=== PATIENT | male | born 1950 | race Caucasian/White ===

== ENCOUNTER 2017-09-18 06:07 | Inpatient (IN) | payer BC, OTHER ==
[2017-09-05 13:06] VITALS: BMI 28.0
--- NOTE | 2017-09-05 13:33 | PAT Medication Instructions ---
Service Date Sep 05, 2017. Current Home Medication List Aspirin (Aspir-81), 1 TAB PO QPM Atorvastatin (Lipitor), 5 MG PO QPM Cholecalciferol (Vitamin D3), 1 TAB PO QAM Indomethacin (Indocin), 50 MG PO TID Metoprolol Tartrate (Lopressor) (Lopressor), 1 TAB PO BID Prednisone Tab (Prednisone), 10 MG PO QAM Tramadol (Ultram), 50 MG PO Q6H PRN for Pain Valsartan (Diovan), 160 MG PO QPM Medication Instructions For Your Scheduled Surgery - Hold the following medications 24 hours prior to surgery: Valsartan (Diovan), 160 MG PO QPM - Hold the following medications the morning of surgery: Cholecalciferol (Vitamin D3), 1 TAB PO QAM - Take the following medications the morning of surgery with a sip of water: Tramadol (Ultram), 50 MG PO Q6H PRN for Pain (okay to take up to 4 hours prior to surgery if needed) Metoprolol Tartrate (Lopressor) (Lopressor), 1 TAB PO BID Prednisone Tab (Prednisone), 10 MG PO QAM - Take the following medications as scheduled the night before surgery: Metoprolol Tartrate (Lopressor) (Lopressor), 1 TAB PO BID Tramadol (Ultram), 50 MG PO Q6H PRN for Pain (if needed) Aspirin (Aspir-81), 1 TAB PO QPM Atorvastatin (Lipitor), 5 MG PO QPM If you have any questions please call us at [phone] or [phone] or [phone]
--- NOTE | 2017-09-05 14:02 | DIAGNOSTIC IMAGING REPORT ---
CHEST 2 VIEWS ROUTINE HISTORY: 67 years-old Male PAT preoperative exam. No acute chest complaints COMPARISON: None available TECHNIQUE: PA and lateral views of the chest FINDINGS: Cardiomediastinal and hilar silhouettes are within normal limits. Atherosclerosis of the aorta. There is no pneumothorax, pleural effusion, focal airspace consolidation or overt pulmonary edema. Degenerative changes are seen within the spine. IMPRESSION: No acute process. The above report was generated using voice recognition software. It may contain grammatical, syntax or spelling errors. Electronically signed by: Pedrito Topete M.D. 09/05/2017 2:01 PM Dictated Date/Time: 09/05/2017 1:59 PM
[2017-09-05 14:03] LABS: BASO % 0.6 %; BASO ABS # 0.04 K/uL (0-0.2); EOS % 3.4 %; EOS ABS # 0.24 K/uL (0-0.5); HEMATOCRIT 37.4 % (42-52); HEMOGLOBIN 13.4 g/dL (14.0-18.0); IG# 0.01 K/uL (0.00-0.02); LYMPH % 15.7 %; MEAN CELL VOLUME 86.4 fL (80-100); MEAN CORPUSCULAR HEMOGLOBIN 30.9 pg (25-34); MEAN CORPUSCULAR HGB CONC 35.8 g/dl (32-36); MEAN PLATELET VOLUME 9.1 fL (7.4-10.4); MONO % 10.6 %; MONO ABS # 0.74 K/uL (0.11-0.59); NEUT % 69.6 %; NEUT ABS # 4.87 K/uL (1.4-6.5); PLATELET COUNT 259 K/uL (130-400); RED CELL DISTRIBUTION WIDTH CV 12.4 % (11.5-14.5); RED CELL DISTRIBUTION WIDTH SD 39.7 fL (36.4-46.3)
[2017-09-05 14:23] LABS: PTT PATIENT 26.4 SECONDS (21.0-31.0)
[2017-09-05 15:14] LABS: CALCIUM 9.7 mg/dl (8.5-10.1); CREATININE 1.46 mg/dl (0.60-1.40); POTASSIUM 4.3 mmol/L (3.5-5.1)
--- NOTE | 2017-09-09 17:21 | HISTORY & PHYSICAL EXAMINATION ---
DATE OF ADMISSION: 09/18/2017 CHIEF COMPLAINT: Left hip pain. HISTORY OF PRESENT ILLNESS: This 67-year-old white male presents to the office with complaints of left hip pain that he has had for several years. It has become significantly worse over the last 4-6 months. He is on chronic steroids for sarcoidosis. Previously, he has increased his dose based on his pain. No numbness or tingling. Pain is worse with weightbearing. He is not having limited motion secondary to pain. He is ambulatory using crutches. He elects to proceed with left total hip arthroplasty in hopes of alleviating his pain. Preoperative imaging has been obtained. PAST MEDICAL HISTORY: Significant for hypertension, elevated cholesterol, history of sarcoidosis, and osteoarthritis. PAST SURGICAL HISTORY: Melanoma excision, bladder reconstruction and colon surgery. ALLERGIES: NKDA. CURRENT MEDICATIONS: Aspirin 81 mg daily, atorvastatin 10 mg daily, metoprolol 25 mg daily, prednisone 10 mg daily, vitamin D daily, tramadol 50 mg q. 6 hours p.r.n., and valsartan 160 mg p.o. daily. SOCIAL HISTORY: The patient is . Retired. No tobacco use. Social ETOH use. FAMILY HISTORY: Reviewed with the patient and noncontributory. REVIEW OF SYSTEMS: Significant for above stated conditions. Otherwise unremarkable. PHYSICAL EXAMINATION: GENERAL: Well-developed and well-nourished elderly white male in no acute distress. Sitting in a chair. Alert and oriented. obvious discomfort. SKIN: Warm and dry with fair turgor. No rashes. Significant dry skin and scaling is noted. No intraarticular effusion. No redness or warmth. HEENT: Normocephalic and atraumatic. Eyes, PERRLA and EOMI. Nares patent bilaterally without turbinate enlargement. Oropharynx is without erythema or exudate. No lesions noted. Uvula midline. Oral mucosa moist. Fairly good dentition. Dental caps are noted. HEART: RRR. No MGR. Occasional PVCs. LUNGS: Clear to auscultation bilaterally. No crackles, rhonchi or wheezing. Good air movement. ABDOMEN: Bowel sounds present x4, soft and nontender. No organomegaly. No masses. MUSCULOSKELETAL: Left hip has no obvious asymmetry or deformity. He has very limited range of motion secondary to discomfort. Flexion contracture of around 10 degrees. He is only able to flex to 80 degrees. Internal rotation only to neutral. External rotation of only around 10 degrees. All of these are limited by pain. He has focal discomfort with palpation over the anterior flexion crease. No pain with palpation over the greater trochanter or buttock. Ambulatory with an antalgic gait using his crutches. NEUROLOGIC: Gross sensation is intact across the left leg by soft touch. Cranial nerves II-XII are intact. Peripheral pulses are 2+. DATA: Radiographic imaging previously obtained shows end-stage DJD of the left hip. Periarticular osteophytes, subchondral sclerosis, and joint space narrowing are all present. He also appears to have a leg length inequality with the left side being 0.5 cm short. IMPRESSION: Left hip end-stage degenerative joint disease. PLAN: Approximately 20 minutes was spent with the patient reviewing operative procedure, postoperative recovery, physical therapy requirements and medication use. Postoperative prescriptions for Percocet and Coumadin will be provided at discharge from the hospital. Anticipate discharge to home with home health services. Preoperative lab work, EKG, and chest x-ray have been ordered. 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 He already has access to crutches and a walker.
[~2017-09-18] VITALS: Ht 185.4 cm; Wt 98.4 kg
[2017-09-18] VITALS (9 sets, daily range): BP systolic 115–136; BP diastolic 72–83; PULSE 73–102; TEMP 36.4–36.8; O2SAT 96–100; Ht 185.4 cm; Wt 98.4 kg
[~2017-09-18 06:07] MED LIST: ASPI-232 PO; ATOR10TA82 PO; CEFAZOLIN 2000MG IV PUSH 15 ML IV SCH; CHOL100058 PO; DVN/160 PO; LACTATED RINGER'S 1000ML 1,000 ML IV SCH; LACTATED RINGER'S 1000ML 500 ML IV SCH; LACTATED RINGER'S 1000ML IV SCH; METHYLPREDNISOLONE IV SCH; METO25TA56 PO; PRED10TA PO; ROPIVACAINE 5MG/ML 30 ML 150 MG, BUPIVACAINE/EPINEPHR 0.5% MPF 30 ML, KETOROLAC TROMETH... INFIL SCH; TRAM-10 PO; TRANEXAMIC ACID INJ 1,000 MG x 1 Bag Preop IV SCH
--- NOTE | 2017-09-18 06:29 | History & Physical Bridge Note ---
H&P Re-Evaluation Bridge Note: I have examined the patient, reviewed the History & Physical and in the interval since the performance of the History & Physical I have noted the following changes of clinical significance:consent obtained. No changes noted
[2017-09-18] MEDS ORDERED: BUPIVACAINE 0.5 % 5 MG/1 ML PF 10ML VIAL ONE (06:34)
[2017-09-18] MEDS ORDERED: FENTANYL CITRATE INJ 50 MCG/1 ML 2 ML VIAL ONE (07:21)
[2017-09-18] MEDS ORDERED: LIDOCAINE HCL 2% 2 ML VIAL (20MG/ML) ONE (07:21)
[2017-09-18] MEDS ORDERED: PROPOFOL IV EMULSION 10 MG/ML 20 ML VIAL IV ONE (07:21)
[2017-09-18] MEDS ORDERED: MIDAZOLAM HCL 1 MG/ML 2ML VIAL ONE ×2 (07:21→09:28)
[2017-09-18] MEDS ORDERED: ORTHO JOINT ANESTHETIC ONE (08:29)
[2017-09-18] MEDS ORDERED: POVIDONE-IODINE OP SOLN 30 ML BTL ONE (08:29)
[2017-09-18] MEDS ORDERED: PHENYLEPHRINE 100MCG/ML 5ML SYR ONE (09:05)
[2017-09-18] MEDS ORDERED: EpHEDrine SULFATE 50MG/5ML SYR ONE (09:05)
[2017-09-18] MEDS ORDERED: ATROPINE SULFATE 0.1 MG/ML 5ML SYR IV PRN (09:15)
[2017-09-18] MEDS ORDERED: HYDROmorphone INJ 0.5 MG/0.5 ML SYR IV PRN (09:15)
[2017-09-18] MEDS ORDERED: FENTANYL CITRATE INJ 50 MCG/1 ML 2 ML VIAL IV PRN (09:15)
[2017-09-18] MEDS ORDERED: MEPERIDINE HCL 25 MG/ML CARP IV PRN (09:15)
[2017-09-18] MEDS ORDERED: ONDANSETRON INJ 2 MG/ML 2 ML VIAL IV PRN ×2 (09:15→10:30)
[2017-09-18] MEDS ORDERED: EpHEDrine SULFATE INJ 50 MG/ML AMP IV PRN (09:15)
[2017-09-18] MEDS ORDERED: LABETALOL HCL IV 5 MG/ML 20ML IV PRN (09:15)
--- NOTE | 2017-09-18 10:09 | [facility] Post Operative Brief Note ---
Immediate Operative Summary Operative Date Sep 18, 2017. Pre-Operative Diagnosis Left Hip End-Stage Degenerative Joint Disease Post-Operative Diagnosis Left Hip End-Stage Degenerative Joint Disease Procedure(s) Performed Left Total Hip Arthroplasty--Uncemented Surgeon Dr. Cano Rn Bone Marrow Transplant Surgeon(s) Dr. Braden Zarate (Fellow)/ [facility] [place] Estimated Blood Loss 200 ml Findings Consistent with Post-Op Diagnosis Fluids (cc crystalloids) 1200cc Specimens A. Left Femoral Head Drains None Anesthesia Type Spinal MAC Complication(s) none Disposition Accompanied Pt To Recover: no Disposition: Recovery Room / PACU
--- NOTE | 2017-09-18 10:25 | OPERATIVE REPORT ---
DATE OF OPERATION: 09/18/2017 SURGEON: Naun Cano MD. PLACEMENT SPECIALIST: Elliot. SECOND PLACEMENT SPECIALIST: Vijay Degroot PA-C. PREOPERATIVE DIAGNOSIS: Severe osteoarthritis, left hip. POSTOPERATIVE DIAGNOSIS: Same. OPERATION PERFORMED: Noncemented left total hip placement. PERIOPERATIVE SITUATION: Medically cleared male with intractable hip pain. He had x-rays which reveal end-stage disease with superior lateral migration and marked osteophyte formation, periarticular calcification of the labrum. At this point in time, he is at end-stage and wants to proceed with surgical treatment at his request. He understands all risks and consequences. Has extenuating family circumstances as well. This was discussed in detail. SUMMARY OF IMPLANTS: Size 52 cup acetabular shell sector standard Tri-Lock size 5, 36 x 52 neutral liner, 36+8.5 head, hole eliminator and 6.5 screw x 25 mm. DESCRIPTION OF THE PROCEDURE: The patient appropriately identified, site verified, consent verified, 2 grams of Ancef confirmed as being given. The patient was placed in the right lateral decubitus position. Left lower extremity prepped and draped in usual routine fashion. Posterior approach to the hip was then made. Sharp dissection carried through skin and blunt dissection down to the fascia. This was then incised. Care was taken to protect the sciatic nerve. A Charnley retractor placed. Short external rotators released, capsule T'd and the hip dislocated. Femoral neck resected. Marginal capsular release performed on the anterior surface of the femoral neck. Retraction was then placed and acetabular exposure was excellent. Remaining soft tissue removed. There was a large osseous body either calcified labrum or os acetabuli that was removed. Serial reaming was then carried up to a size 52 and a 52 cup impacted into appropriate anteversion and inclination, perhaps was slightly horizontal but was at good acceptable position. The wound was then irrigated with Betadine Pulsavac and then the 6.5 x 25 screw placed and trial liner seated. The femur was then flexed and internally rotated and prepared proximally with a rongeur, supervisor mattress and boxsprings, canal finder, lateralizing rasp, and serial broaching up to a size 5. Size 5 Tri-Lock with multiple head trials was carried out. The hip was very stable with the 8.5 head. The leg lengths were within millimeters of equality. The hip was then dislocated. All remaining trial elements were removed. The wound irrigated with Betadine, Pulsavac, hole eliminator seated, permanent liner seated, permanent head and neck seated. The hip was then reduced and the hip was stable beyond 110 degrees of flexion at 90 degrees and neutral adduction was stable to about 40 degrees of internal rotation. Leg lengths were within millimeters of equality. The hip extension, external rotation was stable. The wound was then irrigated one final time with Betadine Pulsavac and then the capsule closed with #2 Vicryl, the short external rotators with #2 Vicryl, the IT band and the gluteus renae fascia with #2 Vicryl, the subcutaneous layer with 2-0 Vicryl and skin with stainless steel clips. Estimated blood loss was 200 mL. Crystalloid roughly 1000 mL. SUMMARY OF IMPLANTS: Size 52 acetabular shell sector cup hole eliminator, 6.5 x 25 screw neutral liner, 36 x 52 standard 5 Tri-Lock and femoral head 36+8.5. DVT prophylaxis will be with aspirin at patient request. I attest to the content of the Intraoperative Record and any orders documented therein. Any exceptions are noted below. MTDD
[2017-09-18] MEDS ORDERED: OXYCODONE HCL IR 5 MG TAB (IMMEDIATE RELEASE) PO PRN (10:30)
[2017-09-18] MEDS ORDERED: MoRPHine SULFATE 2 MG/ML CARP IV PRN ×2 (10:30→12:00)
[2017-09-18] MEDS ORDERED: MAGNESIUM HYDROXIDE SUSP 30 ML UDC PO PRN (10:30)
[2017-09-18] MEDS ORDERED: ALUMINUM/MAGNESIUM/SIMETH (MAALOX MAX) 30 ML UDC PO PRN (10:30)
[2017-09-18] MEDS ORDERED: TAMSULOSIN HCL 0.4 MG CAP PO PRN (10:30)
[2017-09-18] MEDS ORDERED: BISACODYL 10 MG SUPP PR PRN (10:30)
[2017-09-18] MEDS ORDERED: METOCLOPRAMIDE HCL INJ 5 MG/ML 2 ML VIAL IV PRN (10:30)
--- NOTE | 2017-09-18 10:52 | DIAGNOSTIC IMAGING REPORT ---
PELVIS 1 VIEW ROUTINE CLINICAL HISTORY: Postop hip arthroplasty COMPARISON STUDY: No previous studies for comparison. FINDINGS: A single view the pelvis reveal surgical clips within the right hemipelvis. There are postsurgical changes of a total left hip arthroplasty. The acetabular and femoral components appear well seated. There is air in the soft tissues consistent with recent surgery. There is no dislocation. There are overlying skin ashvin. IMPRESSION: Postsurgical changes of a total left hip arthroplasty. Electronically signed by: Vinicio Buck M.D. 09/18/2017 10:51 AM Dictated Date/Time: 09/18/2017 10:50 AM
--- NOTE | 2017-09-18 10:57 | Anesthesiology Progress Note ---
Anesthesia Post Op Note Date & Time Sep 18, 2017 at 10:57 Vital Signs Pain Intensity: 0 Vital Signs Past 12 Hours Date Time Temp Pulse Resp B/P (MAP) Pulse Ox O2 Delivery O2 Flow Rate FiO2 09/18/17 10:50 74 14 124/80 100 Nasal Cannula 2 09/18/17 10:40 86 20 120/72 100 Nasal Cannula 2 09/18/17 10:30 73 19 114/72 100 Nasal Cannula 2 09/18/17 10:20 36.4 84 16 106/75 100 Oxymask 5 09/18/17 06:40 36.8 75 20 136/83 98 Room Air Notes Mental Status: alert / awake / arousable, participated in evaluation Pt Amnestic to Procedure: Yes Nausea / Vomiting: adequately controlled Pain: adequately controlled Airway Patency, RR, SpO2: stable & adequate BP & HR: stable & adequate Hydration State: stable & adequate Neuraxial Anesthesia: was administered, sensory block is resolving Anesthetic Complications: no major complications apparent
[2017-09-18] MEDS ORDERED: MoRPHine SULFATE 4 MG/ML 1 ML CARP\\VIAL IV PRN (12:00)
[2017-09-18] MEDS ORDERED: D5W AND 1/2NSS + 20MEQ KCL 1,000 ML IV SCH (12:00)
[2017-09-18] MEDS: FERROUS GLUCONATE 324 MG TAB PO SCH ×2 (12:34→18:11)
[2017-09-18] MEDS: KETOROLAC TROMETHAMINE 15 MG/ML VIAL IV. SCH ×3 (12:35→23:59)
--- NOTE | 2017-09-18 13:31 | PROGRESS NOTE ---
DATE: 09/18/2017 SUBJECTIVE: Postop check status post left total hip replacement. The patient had lunch well with no major issues. Denies any chest pain, shortness of breath, fever, chills, nausea, vomiting or headache. OBJECTIVE: Vital signs are stable. He is afebrile. Neurovascular check femoral sciatic nerve is normal. Hip is located. Wound dressing clean, dry and intact. Postop x-rays look excellent. ASSESSMENT AND PLAN: Doing well. Continue with postop care pathway, Hep-Lock IV fluid. Mobilize. Social service assessment. [facility]
[2017-09-18] MEDS: CEFAZOLIN IV 2,000 MG in SYRINGE 0 ML IV SCH ×2 (15:44→23:59)
[2017-09-18] MEDS ORDERED: TRANEXAMIC ACID INJ 1,000 MG in SODIUM CHLORIDE 0.9% 100ML 100 ML IV ONE (16:00)
[2017-09-18] MEDS ORDERED: PNEUMOCOCCAL POLYSACCHARIDES 25 MCG/0.5 ML VIAL/SYR IM. ONE (19:15)
[2017-09-18] MEDS ORDERED: PNEUMOCOCCAL ADMINISTRATION CHARGE ONE (19:15)
[2017-09-18] MEDS ORDERED: NURSING VERBAL MED ORDER ONE (20:30)
[2017-09-18] MEDS ORDERED: VALSARTAN 80 MG TAB PO SCH (21:00)
[2017-09-18] MEDS ORDERED: ASPIRIN/ALUM/MAGNES/CAL CARB 325 MG TAB PO SCH (21:00)
[2017-09-18] MEDS ORDERED: ASPIRIN 325 MG ECTAB PO SCH ×2 (21:00)
[2017-09-18] MEDS ORDERED: SENNA 8.6 MG TAB PO SCH (21:00)
[2017-09-18] MEDS ORDERED: ATORVASTATIN 10 MG TAB PO SCH (21:00)
[2017-09-18] MEDS: DOCUSATE SODIUM 100 MG CAP PO SCH (21:42)
[2017-09-18] MEDS: METOPROLOL TARTRATE 25 MG TAB PO SCH (21:43)
[2017-09-19 03:06] VITALS: BP 131/73; PULSE 72; TEMP 37; O2SAT 97
[2017-09-19] MEDS: KETOROLAC TROMETHAMINE 15 MG/ML VIAL IV. SCH (05:31)
[2017-09-19 06:31] LABS: BASO % 0.1 %; BASO ABS # 0.01 K/uL (0-0.2); HEMATOCRIT 32.6 % (42-52); HEMOGLOBIN 11.8 g/dL (14.0-18.0); IG# 0.03 K/uL (0.00-0.02); LYMPH % 11.9 %; LYMPH ABS # 1.51 K/uL (1.2-3.4); MEAN CELL VOLUME 83.4 fL (80-100); MEAN CORPUSCULAR HEMOGLOBIN 30.2 pg (25-34); MEAN CORPUSCULAR HGB CONC 36.2 g/dl (32-36); MEAN PLATELET VOLUME 8.9 fL (7.4-10.4); MONO % 8.9 %; MONO ABS # 1.13 K/uL (0.11-0.59); NEUT % 78.9 %; NEUT ABS # 10.02 K/uL (1.4-6.5); PLATELET COUNT 257 K/uL (130-400); RED CELL DISTRIBUTION WIDTH CV 12.5 % (11.5-14.5); RED CELL DISTRIBUTION WIDTH SD 37.8 fL (36.4-46.3)
[2017-09-19 07:02] LABS: CALCIUM 9.4 mg/dl (8.5-10.1); CREATININE 1.6 mg/dl (0.60-1.40)
[2017-09-19] MEDS ORDERED: DEXAMETHASONE INJ 10 MG in SYRINGE 0 ML IV ONE (07:30)
[2017-09-19 07:33] VITALS: BP 143/80; PULSE 81; TEMP 36.4; O2SAT 96
--- NOTE | 2017-09-19 07:55 | PROGRESS NOTE ---
DATE: 09/19/2017 SUBJECTIVE: Postop day #1 status post left total hip replacement. The patient is doing well, has no major issues. He denies chest pain, shortness of breath, fever, chills, nausea, vomiting or headache. OBJECTIVE: Vital signs are stable. He is afebrile. Wound dressing clean, dry and intact. Femoral sciatic nerve is normal. Laboratory work reveals hematocrit stable at 32.6. White count slightly increased based on steroid stress dose. Chemistry is within normal limits. ASSESSMENT: Doing well status post left total hip replacement. PLAN: Is to discharge today. Due to the fact that he is going to be involved with some serious health issues with his family we will place a Prevena on him to keep the wound sealed. Also, we will have him be moving around a fair amount and we are to laboratory work. We will place him on aspirin therapy 325 daily. He will follow up with us in a week for Prevena change and wound assessment and hopefully staple removal at 2 weeks. We will start outpatient PT, appointment to be determined today. TIMMY
--- NOTE | 2017-09-19 07:59 | DISCHARGE SUMMARY ---
CHIEF COMPLAINT: Left hip pain. HISTORY OF PRESENT ILLNESS: The patient is admitted for elective left total hip replacement. Hospital course has been uneventful. PAST MEDICAL HISTORY: Remarkable for hypertension, elevated cholesterol, sarcoidosis, osteoarthritis. PAST SURGICAL HISTORY: Remarkable for melanoma excision, bladder cancer reconstruction and colon surgery. ALLERGIES: None. PREADMISSION MEDICATIONS: Include aspirin 81 mg daily, atorvastatin 10 mg daily, Toprol 25 mg daily, prednisolone 10 mg daily, vitamin D, tramadol 50 mg q. 6 hours p.r.n. and valsartan 160 mg p.o. daily. At this point in time, can discontinue the tramadol, the use of p.r.n. and increase the aspirin at 325 mg daily for 4-6 weeks for DVT prophylaxis. The patient understands this. SOCIAL HISTORY: Reveals he is , retired. No tobacco or alcohol use. REVIEW OF SYSTEMS: Noncontributory. ASSESSMENT: Status post left total hip replacement. He has done well. We will discharge today after PT, OT. No need for INR as he is on aspirin therapy 325 daily. Will follow up in 1 week after Prevena is placed to remove dressing and reassess.
[2017-09-19] MEDS: FERROUS GLUCONATE 324 MG TAB PO SCH (08:13)
--- NOTE | 2017-09-19 08:53 | Anesthesiology Progress Note ---
Anesthesia Post Op Note Date & Time Sep 19, 2017 at 08:53 Vital Signs Pain Intensity: 1.0 Vital Signs Past 12 Hours Date Time Temp Pulse Resp B/P (MAP) Pulse Ox O2 Delivery O2 Flow Rate FiO2 09/19/17 07:33 36.4 81 16 143/80 (101) 96 Room Air 09/19/17 03:06 37.0 72 14 131/73 (92) 97 Room Air 09/19/17 00:00 Room Air 09/18/17 23:21 36.8 73 14 131/78 (95) 97 Room Air 09/18/17 21:44 80 115/72 (86) Notes Mental Status: alert / awake / arousable, participated in evaluation Pt Amnestic to Procedure: Yes Nausea / Vomiting: adequately controlled Pain: adequately controlled Airway Patency, RR, SpO2: stable & adequate BP & HR: stable & adequate Hydration State: stable & adequate Neuraxial Anesthesia: was administered, sensory block resolved Anesthetic Complications: no major complications apparent
[2017-09-19] MEDS: DOCUSATE SODIUM 100 MG CAP PO SCH (08:58)
[2017-09-19] MEDS: METOPROLOL TARTRATE 25 MG TAB PO SCH (08:58)
[2017-09-19] MEDS ORDERED: ASPIRIN 325 MG ECTAB PO SCH (09:00)
[2017-09-19] MEDS ORDERED: PANTOprazole SOD 40 MG TAB PO SCH (09:00)
[2017-09-19] MEDS ORDERED: MULTIVITAMIN TAB PO SCH (09:00)
[2017-09-19] MEDS ORDERED: ASPIRIN/ALUM/MAGNES/CAL CARB 325 MG TAB PO SCH (09:00)
--- NOTE | 2017-09-19 09:47 | Orthopedic Progress Note ---
Orthopedic Progress Note Date of Service Sep 19, 2017. Subjective Post OP Day: 1 Reports: feeling well, pain controlled w PO medications, Denies: complaints, chest pain, SOB, nausea / vomiting, light headedness, calf pain Additional Notes: Son is in room. Feels ready to go home. Objective calves soft nontender, N/V intact, hip located, capillary refill less than 2 sec., dressing C/D/I, incision C/D/I, A&O x3, toes mobile, CMS intact Dressing with minimal drainage. No active bleeding. Date Time Temp Pulse Resp B/P (MAP) Pulse Ox O2 Delivery O2 Flow Rate FiO2 09/19/17 07:33 36.4 81 16 143/80 (101) 96 Room Air 09/19/17 07:30 Room Air 09/19/17 03:06 37.0 72 14 131/73 (92) 97 Room Air 09/19/17 00:00 Room Air 09/18/17 23:21 36.8 73 14 131/78 (95) 97 Room Air 09/18/17 21:44 80 115/72 (86) 09/18/17 15:08 36.4 102 18 122/78 (93) 96 Room Air 09/18/17 14:15 95 16 119/76 (90) 97 Room Air 09/18/17 13:11 95 16 132/78 (96) 98 Nasal Cannula 2.0 09/18/17 12:11 74 16 127/82 (97) 100 Nasal Cannula 2.0 09/18/17 11:44 36.4 73 19 123/79 (94) 100 Nasal Cannula 2.0 09/18/17 11:15 36.5 76 16 127/82 (97) 100 Nasal Cannula 2.0 09/18/17 11:15 Nasal Cannula 2.0 09/18/17 11:15 Nasal Cannula 2.0 09/18/17 11:00 36.8 78 17 126/73 100 Nasal Cannula 2 09/18/17 10:50 74 14 124/80 100 Nasal Cannula 2 09/18/17 10:40 86 20 120/72 100 Nasal Cannula 2 09/18/17 10:30 73 19 114/72 100 Nasal Cannula 2 09/18/17 10:20 36.4 84 16 106/75 100 Oxymask 5 Laboratory Results 24 Hours: Test 09/19/17 05:57 White Blood Count 12.70 K/uL Red Blood Count 3.91 M/uL Hemoglobin 11.8 g/dL Hematocrit 32.6 % Mean Corpuscular Volume 83.4 fL Mean Corpuscular Hemoglobin 30.2 pg Mean Corpuscular Hemoglobin Concent 36.2 g/dl Platelet Count 257 K/uL Mean Platelet Volume 8.9 fL Neutrophils (%) (Auto) 78.9 % Lymphocytes (%) (Auto) 11.9 % Monocytes (%) (Auto) 8.9 % Eosinophils (%) (Auto) 0.0 % Basophils (%) (Auto) 0.1 % Neutrophils # (Auto) 10.02 K/uL Lymphocytes # (Auto) 1.51 K/uL Monocytes # (Auto) 1.13 K/uL Eosinophils # (Auto) 0.00 K/uL Basophils # (Auto) 0.01 K/uL Assessment & Plan Assessment: Left hip post op day 1 total hip arthroplasty Plan: PT/OT today coumadin per nomogram D/C to home today with out patient PT WBAT, using the walker f/u in the office in 1 week for Prevena wound vac removal. Discharge Planning Discharge Planning: home Pain Management: Percocet DVT Prophylaxis: TEDs, SCDs, ASA
--- NOTE | 2017-09-19 09:48 | Discharge Instructions ---
Discharge Instructions Date of Service Sep 18, 2017. Admission Reason for Admission: Left Hip Degenerative Joint Disease #223 Discharge Discharge Diagnosis / Problem: left hip s/p total hip replacement Discharge Goals Goal(s): Decrease discomfort, Improve function, Increase independence Activity Recommendations Activity Limitations: as noted below Lifting Limitations: gradually increase as tolerated Exercise/Sports Limitations: until after follow-up appointment Shower/Bathe: keep incision dry Driving or Machine Use: No driving until cleared by Dr. Cano Weightbearing Status: Left weightbearing (as tolerated) . Instructions / Follow-Up Instructions / Follow-Up New Medicine: * You will likely be taking one or more of these medicines: 1. Percocet - Take, as directed, when you need it, every four to six hours to control your pain. * The most common side effects of pain medicine and iron are nausea and constipation. If nausea or constipation is too much of a problem or if you have any questions about your new medicines or doses, call [facility] at . We will try to help you manage these issues. VERY IMPORTANT TO READ AND REVIEW" Blood Clots and Blood Thinning Medicine: * You are given Aspirin during the immediate post-operative period to lessen the risk of blood clots forming in your legs and/or lungs. Aspirin is usually given for six weeks after surgery. Pain: * The immediate post-operative period after hip replacement surgery is often quite painful. * You are given a prescription for pain medicine. You should take it, as directed, when you need it, especially before physical therapy and before going to bed. Pain that interferes with sleep is very common and can last several months. * You will likely need pain medicine for the first two to four weeks. It will not stop all of the pain. The pain will lessen and as you feel better, you may change to milder pain medicine such as Tylenol. * The most common side effects of pain medicine are nausea and constipation, so don't take more than you need. Physical Therapy: * Follow the "Hip Precautions Instructions." * In some cases, the parking worker at the hospital will arrange to have a therapist come to your house for the first couple of weeks to help you learn these skills. * You need to practice on your own or with the help of a family member as needed. * When you learn these skills, most of the therapy can be done on your own. Home Exercise: * You were shown a series of exercises in the hospital. Do these exercises three to four times each day including the exercises you were shown in physical therapy. Walking: * Get up and walk several times each day. For the first four weeks, try not to stand or walk for more than one hour at a time. If you do stand or walk for more than one hour, you will not hurt anything, but your leg will likely swell. * As you feel comfortable, you may change from the walker or crutches to a cane and then to independent walking. SELF CARE INSTRUCTIONS AFTER TOTAL HIP REPLACEMENT Until the incision and soft tissues around your hip have healed, there is a possibility that the hip prosthesis could dislocate. A. Observe the following precautions to prevent dislocation: 1. Don't bend your hip greater than 90 degrees. 2. Avoid crossing your legs or ankles while standing or lying. 3. Sit with your feet placed 6 inches apart. 4. When sitting, keep your knees below your hips. Sit on a firm surface, avoid deep, soft chairs and couches. Use an elevated toilet seat in the bathroom. 5. Don't bend over at the waist. Use a long handled shoehorn and a sock aid to help you put on your shoes and socks. A ecology teacher can help you pick up man objects that are too high or too low to reach. 6. Keep car riding to a minimum for at least one month after surgery. B. Your balance may be shaky for a while. Use crutches or a walker until directed by your doctor. C. Use hand rails when walking on stairs. D. Wear low heeled shoes with non-slip soles. E. Be sure that your floors are free of things that could trip you - throw rugs , electrical cords, small objects. Avoid wet and waxed floors, especially with crutches and canes. F. Try to walk several times a day with rest periods between. G. Continue with all the exercises taught to you in the hospital. Again, make walking a part of your daily routine. VERY IMPORTANT TO READ AND REVIEW A. Take Aspirin (blood thinning medication) as directed by your doctor. B. There are a few signs you need to watch for after you are home. If you notice any of the followin. Increased severe hip pain. Some pain is expected especially when you exercise. 2. Increased swelling in your leg or knee; pain or swelling of the calf muscle in either lower leg. 3. Any fluid drainage from the incision. 4. Shortness of breath or chest pain. TEDs/Elastic Stockings: * The white elastic stockings help limit swelling and prevent blood clots from forming in your legs. The more you wear them, the more they work. * Wear them for six weeks. Prevention of Infection: * Take antibiotics one hour before any dental cleaning, dental work, urological procedure, gastrointestinal procedure or any invasive surgery in order to prevent your new joint from getting infected. * You may get the antibiotics from the doctor performing the procedure or we will call in a prescription to the pharmacy of your choice. Call the office for a prescription at least 2 days prior to your appointment. Things to Watch For: * Drainage from the incision site that occurs more than one week after your surgery. * Severely increased leg pain or swelling. * Increased redness at the incision site. * Fever above 101 degrees Fahrenheit. * Unusual chest pain or shortness of breath. * Unusual pain or burning with urination. Current Hospital Diet Patient's current hospital diet: Regular Diet Discharge Diet Recommended Diet: Regular Diet Procedures Procedures Performed: Left Total Hip Arthroplasty--Uncemented Pending Studies Studies pending at discharge: no Medical Emergencies . Who to Call and When: Medical Emergencies: If at any time you feel your situation is an emergency, please call 911 immediately. . Non-Emergent Contact Non-Emergency issues call your: Primary Care Provider, Surgeon Call Non-Emergent contact if: temperature is above 101, wound has increased drainage, wound has increased redness, wound has increased pain, you have any medication questions . "Provider Documentation" section prepared by Vijay Degroot PA-C. . [place] Drug Monitoring Program Search Results: no issues identified
[2017-09-19] MEDS ORDERED: OXYC-57 PO (09:49)
--- NOTE | 2017-09-19 10:05 | [facility] Operative Report ---
Operative Report Operative Date Sep 19, 2017. Pre-Operative Diagnosis Left Hip End-Stage Degenerative Joint Disease Post-Operative Diagnosis Left Hip End-Stage Degenerative Joint Disease Procedure(s) Performed Left Total Hip Arthroplasty--Uncemented Surgeon Dr. Cano Phlebotomy Instructor Surgeon(s) Dr. Braden Zarate (Fellow)/ [facility] [place] Estimated Blood Loss 200 ml Findings Left hip DJD Fluids 1200cc Specimens A. Left Femoral Head Drains None Anesthesia Type Spinal MAC Complication(s) none Disposition no Recovery Room / PACU Indications This 67-year-old white male presented to the office with intractable left hip pain. He had tried conservative care measures including activity modification, oral pain medication, and use of crutches without improvement. He elected to proceed with surgical intervention after being educated about potential risks and outcomes. Preoperative imaging was obtained. Description of Procedure Patient was administered a spinal anesthetic and then taken to the operating room where he was given sedation. He was prepped and draped in usual sterile fashion. Please see Dr. Cano's operative report for specifics of the procedure. I was present for the entire case from initial patient positioning through final wound closure. Assistance was provided in tissue retraction, hemostasis, trial implant placement, final implant placement, and final wound closure. Patient was taken to the recovery room in satisfactory condition. I attest to the content of the Intraoperative Record and any orders documented therein. Any exceptions are noted below.
[2017-09-19 10:57] VITALS: BP 112/69; PULSE 77; TEMP 36.5; O2SAT 97
== END 2017-09-19 12:15 | disposition home or self-care (01) | DRG 470 ==
LOC: C.ACU 06:07 → C.3E 07:15 → ENRESERV 10:55
PROVIDERS: ADMIT Physical Medicine & Rehabilitation Sports Medicine; ATTEND Physical Medicine & Rehabilitation Sports Medicine
PROC: 0SRB0JA Replacement of Left Hip Joint with Synthetic Substitute, Uncemented, Open Approach (ICD-10-PCS; principal; 2017-09-18 09:00)
DX: M16.12 Unilateral primary osteoarthritis, left hip (principal); I10 Essential (primary) hypertension; D86.9 Sarcoidosis, unspecified; Z79.52 Long term (current) use of systemic steroids; Z79.82 Long term (current) use of aspirin; Z85.51 Personal history of malignant neoplasm of bladder